=== PATIENT | female | born 1955 | race Caucasian/White ===

== ENCOUNTER → 2018-10-18 | Outpatient (CLI) | payer OTHER ==
[~2018-10-18] MED LIST: ACETAMINOPHEN-1 EAC1 PO; ASPIRIN EC81 M1 PO; CRANBERRY200 MG; CRANBERRY400 MG PO; D-BIOTIN1 GM; DESYREL300 MG PO; HYDROCODON-ACE1 EAC7 PO; KEFLEX500 MG PO; NORCO 5-325 TA1 EACH PO; OPTIFLEX-C400 MG PO; PROZAC 20 MG20 MG; PROZAC40 MG PO; TRAZODONE HCL100 MG; VALIUM10 MG; VITAMIN D3400 UNIT; XANAX 0.25 MG0.25 MG PO; XANAX1 MG PO
== END ==
LOC: M.RAD 10:25
DX: Z12.31 Encounter for screening mammogram for malignant neoplasm of breast (principal)